=== PATIENT | male | born 1955 | race African-American/Black ===

== ENCOUNTER → 2020-08-05 13:30 | Outpatient (BNVA) | payer OTHER, SELFPAY | PROVIDERS: PCP Internal Medicine; Visit Provider Surgery Vascular Surgery | DX: Z76.89 Persons encountering health services in other specified circumstances (principal) ==

== ENCOUNTER 2020-08-18 10:08 | Outpatient (REF) | payer OTHER, SELFPAY ==
--- NOTE | 2020-08-18 | US_ITS ---
EXAMINATION: COLOR-FLOW DUPLEX IMAGING OF THE BILATERAL LOWER EXTREMITY ARTERIAL SYSTEM. VELOCITY MEASUREMENTS THROUGHOUT THE FEMORAL ARTERIES WITH ANKLE-BRACHIAL PERIPHERAL ARTERIAL TESTING. CLINICAL INFORMATION: This is a 64-year-old male with bilateral claudication. Status post left femoral bypass. Interventional Radiologist: Tayo Roach M.D., F.S.I.R., F.A.C.R. RIGHT FEMORAL RUNOFF VELOCITIES: The right common femoral artery measures 299 cm/s and monophasic. The right profunda femoral artery is 133 cm/s and is biphasic. Right proximal superficial femoral artery measures 143 cm/s and monophasic. Mid superficial femoral artery is 261 cm/s and triphasic. Distal right superficial femoral artery measures 60 cm/s and is biphasic. Right popliteal velocity measures 30 cm/s and is monophasic. The posterior tibial artery velocity measures 15 cm/s and was biphasic. Left Bypass Graft: Inflow artery: Proximal anastomosis: 208 cm/s and biphasic. Proximal bypass graft: 393 cm/s and biphasic. Mid bypass graft: 104 cm/s and biphasic. Distal bypass graft: 138 cm/s and biphasic. Distal anastomosis: 133 cm/s and biphasic. Outflow artery: 83 cm/s and biphasic. LEFT FEMORAL RUNOFF VELOCITIES: The left common femoral artery measures 156 cm/s and biphasic. The left profunda femoral artery is 215 cm/s and is monophasic. Left proximal superficial femoral artery measures 115 cm/s and monophasic. Mid superficial femoral artery is occluded. Distal left superficial femoral artery measures 73 cm/s and is biphasic. Left popliteal velocity measures 83 cm/s and is biphasic. The posterior tibial artery velocity measures 59 cm/s and was biphasic. US/US JOSELINE complete IMPRESSION: 1. The [place] mid left superficial femoral artery is occluded. There is also elevated velocities and likely high-grade stenosis proximal to, and possibly within the proximal portion of, the bypass graft 2. There are elevated velocities in the right external iliac artery and right common femoral artery and mid right superficial femoral artery, respectively. These are consistent with hemodynamically significant stenoses. There is likely a hemodynamically significant inflow stenosis on the right. 3. There are elevated velocities in the left external iliac artery and left common femoral artery consistent with likely hemodynamically significant stenosis.
--- NOTE | 2020-08-18 10:12 | US_ITS ---
EXAMINATION: COLOR-FLOW DUPLEX IMAGING OF THE BILATERAL LOWER EXTREMITY ARTERIAL SYSTEM. VELOCITY MEASUREMENTS THROUGHOUT THE FEMORAL ARTERIES WITH ANKLE-BRACHIAL PERIPHERAL ARTERIAL TESTING. CLINICAL INFORMATION: This is a 64-year-old male with bilateral claudication. Status post left femoral bypass. Interventional Radiologist: Tayo Roach M.D., F.S.I.R., F.A.C.R. RIGHT FEMORAL RUNOFF VELOCITIES: The right common femoral artery measures 299 cm/s and monophasic. The right profunda femoral artery is 133 cm/s and is biphasic. Right proximal superficial femoral artery measures 143 cm/s and monophasic. Mid superficial femoral artery is 261 cm/s and triphasic. Distal right superficial femoral artery measures 60 cm/s and is biphasic. Right popliteal velocity measures 30 cm/s and is monophasic. The posterior tibial artery velocity measures 15 cm/s and was biphasic. Left Bypass Graft: Inflow artery: Proximal anastomosis: 208 cm/s and biphasic. Proximal bypass graft: 393 cm/s and biphasic. Mid bypass graft: 104 cm/s and biphasic. Distal bypass graft: 138 cm/s and biphasic. Distal anastomosis: 133 cm/s and biphasic. Outflow artery: 83 cm/s and biphasic. LEFT FEMORAL RUNOFF VELOCITIES: The left common femoral artery measures 156 cm/s and biphasic. The left profunda femoral artery is 215 cm/s and is monophasic. Left proximal superficial femoral artery measures 115 cm/s and monophasic. Mid superficial femoral artery is occluded. Distal left superficial femoral artery measures 73 cm/s and is biphasic. Left popliteal velocity measures 83 cm/s and is biphasic. The posterior tibial artery velocity measures 59 cm/s and was biphasic. US/US arterial duplex LE BI IMPRESSION: 1. The [place] mid left superficial femoral artery is occluded. There is also elevated velocities and likely high-grade stenosis proximal to, and possibly within the proximal portion of, the bypass graft 2. There are elevated velocities in the right external iliac artery and right common femoral artery and mid right superficial femoral artery, respectively. These are consistent with hemodynamically significant stenoses. There is likely a hemodynamically significant inflow stenosis on the right. 3. There are elevated velocities in the left external iliac artery and left common femoral artery consistent with likely hemodynamically significant stenosis.
== END 2020-08-18 10:09 | disposition home or self-care (01) ==
LOC: HO.US 10:08
PROVIDERS: Visit Provider Surgery Vascular Surgery
DX: I70.213 Atherosclerosis of native arteries of extremities with intermittent claudication, bilateral legs (principal); I73.9 Peripheral vascular disease, unspecified; I65.29 Occlusion and stenosis of unspecified carotid artery
CPT/HCPCS: 76775; 93923; 93925

== ENCOUNTER → 2020-09-14 11:11 | Outpatient (BNVA) | payer OTHER, SELFPAY | PROVIDERS: PCP Internal Medicine; Visit Provider Surgery Vascular Surgery ==

== ENCOUNTER 2020-10-13 06:41 | Day surgery (SDC) | payer OTHER, SELFPAY ==
[2020-10-13] VITALS (11 sets, daily range): BP systolic 128–184; BP diastolic 44–67; PULSE 47–59; RESP 16–20; TEMP 36.8–36.9; O2SAT 95–100; BMI 30.4
[2020-10-13 07:04] LABS: MANUAL DIFF FLAG NO
[2020-10-13 07:10] LABS: Basophils Absolute Auto 0.1 X10*3/uL (0.0-0.2); Basophils Percent Auto 0.7 % (0-2); Eosinophils Absolute Auto 0.4 X10*3/uL (0.0-0.4); Eosinophils Percent Auto 3.4 % (0-4); Hematocrit 25.4 % (42-52); Imm Gran Abs Auto 0.05 X10*3/uL (0.00-0.03); Imm Gran Pct Auto 0.5 % (0.0-0.4); Lymphocytes Absolute Auto 2.2 X10*3/uL (1.2-4.9); Lymphocytes Percent Auto 20.3 % (20-40); Mean Corpuscular HGB Conc 27.6 g/dl (31.0-36.0); Mean Corpuscular Hemoglobin 19.8 pg (27.0-33.0); Monocytes Absolute Auto 1.5 X10*3/uL (0.1-1.2); Monocytes Percent Auto 13.8 % (2-11); Neutrophils Absolute Auto 6.6 X10*3/uL (2.0-8.3); Neutrophils Percent Auto 61.3 % (45-73); Platelet Count 333 X10*3/uL (160-400); Red Blood Count 3.53 X10*6/uL (4.60-5.80); White Blood Count 10.7 X10*3/uL (4.8-10.8)
[2020-10-13 07:16] LABS: INTERNATIONAL NORM RATIO 1.1 (0.9-1.1); Prothrombin Time 13.2 SEC (10.8-13.0)
[2020-10-13 07:18] LABS: Partial Thromboplastin Time 33.6 SEC (24.1-38.0)
[2020-10-13 07:22] LABS: Glucose, Whole Blood 87 mg/dL (60-115)
[2020-10-13 07:38] LABS: Anion Gap 10 (12-20); Blood Urea Nitrogen 34 mg/dL (9-16); Carbon Dioxide 22 mmol/L (22-29); Chloride 114 mmol/L (96-108); Creatinine Clr Calc Pharmacy 42.8; Estimated Glomerular Filt Rate 36; Glucose Random 95 mg/dL (60-115); Potassium 4.4 mmol/L (3.3-5.1); Sodium 142 mmol/L (135-145)
[2020-10-13] MEDS: iohexoL 300 MG/ML 100 ML INFUS..BTL IV (10:18)
[2020-10-13] MEDS: iohexoL 300 MG/ML 50 ML INFUS..BTL IV (10:19)
[2020-10-13] MEDS: Lidocaine HCl 1 % MPF 5 ML VIAL 10 ML SUBCUT (10:20)
--- NOTE | 2020-10-13 10:31 | P.OP_ITS ---
Operative Note Operative Note Date of Service: 10/13/20 Narrative: Angiogram report from [facility] Preoperative diagnosis: Peripheral arterial disease of right lower extremity Postoperative diagnosis: Same Procedure: 1. Ultrasound-guided left common femoral access 2. Aortogram with right lower extremity runoff 3. Right SFA plasty and stent Surgeon:Vincent Pedersen M.D. Stem Mounter:None Anesthesia: Local with moderate conscious sedation for a total of 100 minutes, performed by pr Specimens:none Drains:none Estimated blood loss: Less than 10 ml Indications: 65-year-old gentleman with a history of peripheral vascular disease presents for endovascular intervention. He has severe activity limiting claudication. It was noted to The patient has signed the informed consent after reviewing risks, complications, benefits, and alternatives previously discussed with the patient in my office. The patient was given the opportunity to ask any additional questions or voice any concerns. All questions were answered to the patient's satisfaction. Procedure in detail: Patient was brought to the angiography suite prior to which a time-out was called for patient identification and site verification. Bilateral groins were prepped and draped in the standard surgical fashion. Under ultrasound guidance left common femoral was punctured with micro puncture needle and wire. Subsequently a precision 4 Sets[place]ana sheath was then placed. [employer] wire was advanced to the level of the aorta. 4 Setswana Flush catheter was brought up and parked at the level of the renal arteries. Aortogram was then undertaken. Catheter was brought down to the level of the iliac bifurcation. Iliacs were subsequently imaged. Catheter was then brought in up and over to the right side SFA. Runoff study was then undertaken. At this point we were able to get an up and over 5 Setswana sheath. We administered 3000 units of systemic heparin. After 5 minutes of circulation time we then were a ble to advance a Glide[employer] Advantage through this area. We initially plasty this area out with a 6 x 150 balloon which required to insufflations. We then placed stents in to the right SFA. We had to place 2 sequential 6 x 150 stents. Once these were in position amp deployed we then +plasty with a 6 x 150 balloon. Once this was accomplished completion angiogram was undertaken excellent result was achieved. Catheter wire sheath was removed. Direct pressure was held for 10 minutes. Patient tolerated the procedure well. Returned to recovery with stable vitals. Interpretation of films: 1. Ultrasound demonstrates appropriate femoral puncture. Image of which was saved. 2. Aortogram demonstrates appropriate caliber aorta. Minimal disease. Appropriate take-off of the renals. 3. Iliac images demonstrate normal caliber iliacs good flow down to bilateral common femorals 4. Right lower extremity study demonstrated good flow through the common femoral into the profunda femorals. SFA had moderate disease throughout its entire length. It had normal caliber vessel at the above knee popliteal. Below knee and had 3 vessel runoff with anterior tibial and posterior tibial. Post stent demonstrated excellent flow through the SFA and good 3 vessel runoff once again anterior tibial and posterior tibial were most dominant. Conclusion: 1. Successful angiogram. Successful stent placement of right SFA. He will be maintained on aspirin only due to his anemia. This note is constructed using voice recognition software. While every effort has been made to ensure accuracy, industrial hygienist errors may have been included. Thank you for allowing me to participate in the care of your patient. Yours sincerely, Vincent Pedersen MD, FACS, R.P.V.I.
[2020-10-13] MEDS: oxyCODONE HCl Immed Release 5 MG TABLET PO (10:43)
[2020-10-13] MEDS: Acetaminophen 325 MG TABLET 650 MG PO (10:43)
== END 2020-10-13 14:19 | disposition home or self-care (01) ==
PROVIDERS: PCP Internal Medicine; Visit Provider Surgery Vascular Surgery
DX: E11.51 Type 2 diabetes mellitus with diabetic peripheral angiopathy without gangrene (principal); I73.9 Peripheral vascular disease, unspecified; I11.0 Hypertensive heart disease with heart failure; F17.210 Nicotine dependence, cigarettes, uncomplicated; Z79.4 Long term (current) use of insulin; Z79.899 Other long term (current) drug therapy
CPT/HCPCS: 36415; 37226; 75625; 76937; 80048; 82947; 85025; 85610; 85730; 99152; 99153; C1725; C1769; C1876; C1887; C1894; J2250; J3010; Q9967

== ENCOUNTER → 2023-04-06 23:59 | Outpatient (BNV) | payer SELFPAY | PROVIDERS: PCP Internal Medicine; Visit Provider Internal Medicine Cardiovascular Disease | DX: I21.02 ST elevation (STEMI) myocardial infarction involving left anterior descending coronary artery (principal) | CPT/HCPCS: 33967; 92941; 93454; 99152 ==